=== PATIENT | female | born 1960 | race Caucasian/White ===

== ENCOUNTER 2021-09-07 09:20 | Emergency (ER) | payer BC ==
[~2021-09-07] VITALS: Ht 157.5 cm; Wt 90.7 kg
[2021-09-07 09:28] VITALS: BP 149/65
[2021-09-07] MEDS ORDERED: TDAP [DIPH/PERTUSSIS/TET] 0.5 ML VIAL IM ONE ×2 (10:00→10:02)
== END 2021-09-07 10:14 | disposition home or self-care (01) ==
LOC: ER 09:23
DX: S61.012A Laceration without foreign body of left thumb without damage to nail, initial encounter (principal); W45.8XXA Other foreign body or object entering through skin, initial encounter; Y93.G3 Activity, cooking and baking; Y92.89 Other specified places as the place of occurrence of the external cause; Y99.8 Other external cause status
CPT/HCPCS: 90715